=== PATIENT | female | born 2000 | race Caucasian/White ===

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

== ENCOUNTER 2020-01-28 10:40 | Emergency (ER) | payer MEDICAID, SELFPAY ==
[2020-01-28 11:02] VITALS: BP 116/58; PULSE 85; RESP 16; TEMP 36.6; O2SAT 97; BMI 26.4
--- NOTE | 2020-01-28 11:13 | ECG_ITS ---
Measurements Intervals [place] Rate: 70 P: 61 [place]: 158 QRS: 56 QRSD: 111 T: 41 QT: 384 QTc: 416 SINUS RHYTHM WITH SINUS ARRHYTHMIA INCOMPLETE RIGHT BUNDLE BRANCH BLOCK [90+ ms QRS DURATION, TERMINAL R IN V1/V2, 40+ ms S IN I/aVL/V4/V5/V6] Compared to ECG 09/21/2019 15:32:59 Sinus tachycardia no longer present T-wave abnormality no longer present Electronically Signed On 01-28-2020 19:37:35 CDT by Joanne Sanches M.D. [email or web address]
[2020-01-28 11:18] VITALS: BP 116/58; PULSE 91; RESP 16; O2SAT 98
--- NOTE | 2020-01-28 11:18 | CT_ITS ---
WS: [id number] CT head wo con* [id number] REASON FOR EXAM: SYNCOPE IV CONTRAST ADMINISTERED: None. TOTAL EXAM DLP: 617.[address] scans at [facility] use at least one of these dose optimization techniques: automat ed exposure control; mA and/or kV adjustment per patient size (includes targeted exams where dose is matched to clinical indication); or iterative reconstruction. FINDINGS: White matter interfaces were normal. No hemorrhage, mass effect, or infarction. The ventricles are normal no displacement is seen. Periventricular area internal capsule were normal. The sonya and cerebellum are normal. The calvarium show normal appearance no fractures are noted. The paranasal sinuses were all normal. The orbits show no abnormalities. The pituitary was normal. CT/CT head wo con* [id number] IMPRESSION: Normal CT of the brain
--- NOTE | 2020-01-28 11:22 | ED_ITS ---
HPI - Syncope General: Chief Complaint: Syncope Stated Complaint: SYNCOPE yesterday Time Seen by Provider: 01/28/20 10:50 Source: patient Mode of arrival: ambulatory History of Present Illness: HPI narrative: pt states she was witnessed by sister [place] out [place] yesterday evening complaint: loss of consciousness and seizure Onset (ago): unknown Prodromal symptoms: headache, vision changes, lightheaded and nausea/vomiting Associated symptoms: Reports headache(s), nausea and vertigo; Deny fever(s) Review of Systems General: Reports: 10 or more systems reviewed and unremarkable except in HPI and below Const: Denies: fever(s) Eyes: Reports: blurry vision GI: Reports: nausea; Denies: vomiting Neuro: Reports: headache(s) and vertigo PFSH ED PFSH: Social History Smoking and tobacco status: current some day smoker Female Reproductive History: Date of last menstrual period: 01/10/20 Physical Exam Const: COMMON NORMALS: no acute distress, patient oriented x3, no limitations and alert GENERAL APPEARANCE: cooperative and comfortable ORIENTATION/CONSCIOUSNESS: Yes awake, Yes oriented to person, Yes oriented to place and Yes oriented to time HENMT: COMMON NORMALS: normocephalic, atraumatic, external ears normal, EAC's normal, TM's normal bilaterally and Normal external nose present HEAD & SCALP: normal to inspection, normocephalic and atraumatic FACE & SINUS: normal facial exam, sinuses nontender and face symmetric NOSE: Normal external nose present, Normal nares present and No nasal discharge present EXTERNAL EAR: Yes external ears normal EXTERNAL AUDITORY CANAL: EAC's normal TYMPANIC MEMBRANE: TM's normal bilaterally MOUTH: Normal oral and palatal mucosa present, lip normal and tongue normal THROAT: posterior oropharynx normal, tonsils normal and uvula midline Eye: COMMON NORMALS: Equal, round and reactive pupils present, EOMs intact bilaterally and conjunctivae normal GENERAL EYE: appearance normal, both eyes and all related structures and normal light reflex EYELID: eyelids normal CONJUNCTIVA: Yes conjunctivae normal PUPIL: Yes Equal, round and reactive pupils present EOM: Yes EOM abnormal DIRECT OPHTHALMOSCOPY: Yes normal light reflex Neck/C-Spine: COMMON NORMALS: full ROM, no lymphadenopathy, supple, no meningeal signs, no JVD and Thyroid normal GENERAL: Yes normal visual inspection THYROID: Thyroid normal CERVICAL SPINE: Yes cervical ROM normal and Yes normal cervical lordosis Lymph: LYMPHATIC: no lymphadenopathy noted Chest: COMMONS NORMALS: normal inspection of the chest and normal palpation of entire chest wall Resp: COMMON NORMALS: normal respiratory effort, No retractions and clear to auscultation bilaterally AUSCULTATION: clear to auscultation bilaterally Cardio: COMMON NORMALS: no JVD, regular rate, regular rhythm, S1 normal heart sound present, S2 normal heart sound present, No gallops present (Cardio), No clicks present (Cardio), No murmurs present (Cardio), No rub (Cardio) and Peripheral pulses 2+ throughout RATE: regular rate RHYTHM: regular rhythm HEART SOUNDS: S1 normal heart sound present and S2 normal heart sound present PERIPHERAL PULSES: Peripheral pulses 2+ throughout GI: COMMON NORMALS: Normal to inspection, nondistended, normoactive bowel sounds present, Soft to palpation, non-tender and no masses PALPATION: Yes Soft to palpation : COMMON NORMALS: Yes no CVA tenderness and Yes normal external appearance BLADDER/KIDNEY EXAM: Yes no CVA tenderness Back/Pelvis: COMMON NORMALS: no CVA tenderness, thoracic and lumbar spine normal to inspection, no thoracic nor lumbar tenderness and thoraco-lumbar ROM normal Extremity: COMMON NORMALS: normal to inspection, full ROM, capillary refill normal, no joint enlargement, no clubbing, cyanosis or edema, no calf tenderness and no pedal edema GENERAL: Yes normal exam except as noted Neuro: COMMON NORMALS: patient oriented x3, moves all extremities, no focal motor deficits, no sensory deficits noted and gait normal SENSORIUM/OR IENTATION: Yes alert, Yes oriented to person, Yes oriented to place and Yes oriented to time MENINGEAL SIGNS: Yes no meningeal signs Psych: COMMON NORMALS: mental status grossly normal, Normal thought process present, cooperative, normal affect, speech normal and activity/motor behavior normal SPEECH: Yes normal speech THOUGHT PROCESS: Normal thought process present Skin: COMMON NORMALS: no rashes or lesions noted, no wounds and turgor normal GENERAL SKIN EXAM: no rashes or lesions noted and turgor normal Course ED course: Pt [place]. She denies any drug use or drinking during that time. She did not lose bowel or bladder and does not recall having any trauma to head. She was not overheated. She states she did hit her head on some rocks. Sister witnessed the event. CT head ordered and urine studies to rule out or infection. Vitals stable at time of arrival. Orthostatics ordered. Reevaluation(s): Reevaluation #1: CT head normal. Time: 12:31 Reevaluation #2: EKG normal. Orthos negative but BP mildly low upon standing. Able to tolerate PO fluids. UDS positive for THC. Negative for infection. Awaiting UPT. Time: 13:16 Reevaluation #3: Neg . Will proceed with DC with instructions to avoid alcohol and stop smoking. Increase water and electrolyte intake. Follow up with PCP. Time: 13:26 Vital Signs: Vital signs: Vital Signs Temperature 97.8 F 01/28/20 11:02 Pulse Rate 78 01/28/20 12:30 Respiratory Rate 20 H 01/28/20 12:30 Blood Pressure 94/68 01/28/20 12:30 Pulse Oximetry 98 01/28/20 12:30 MDM - Syncope Lab Data: Labs: Lab Results 01/28/20 01/28/20 01/28/20 Range/Units 11:23 11:23 11:23 HCG, Qual Negative (Negative) Urine Color Yellow (Yellow) Urine Appearance Clear (CLEAR) Urine pH 6.5 (5-7) Ur Specific Gravit y 1.015 (1.005-1.030) Urine Protein Neg (Negative) Urine Glucose (UA) Norm (Normal) Urine Ketones Negative (Negative) Urine Blood Neg (Negative) Urine Nitrate Negative (Negative) Urine Bilirubin Neg (NEGATIVE) Urine Urobilinogen 4 H (Negative) mg/dL Ur Leukocyte Melony ase Negative (Negative) Urine Opiates Scre en Negative (Negative) ng/mL Ur Barbiturates Sc reen Negative (Negative) ng/mL Ur Phencyclidine S crn Negative (Negative) ng/mL Ur Amphetamines Sc reen Negative (Negative) ng/mL U Benzodiazepines Scrn Negative (Negative) ng/mL Urine Cocaine Scre en Negative (Negative) ng/mL U Marijuana (THC) Screen Positive H (Negative) ng/mL Imaging Data^: CT Head: Radiologist's impression: [address] [place] [address] CT Scan Report Signed Patient: Harleen Olivera Unit #: [id number] : 2000 Age/Sex: 19 / F ADM Date: 01/28/20 Loc: ER Room/Bed: Attending Dr: Ordering Provider/Ordering MD: Mana Odell NP Date of Service: 01/28/20 Procedure(s): CT head wo con* [id number] Accession Number(s): [id number] Report Number: [id number] WS: [id number] CT head wo con* [id number] REASON FOR EXAM: SYNCOPE IV CONTRAST ADMINISTERED: None. TOTAL EXAM DLP: 617.[address] scans at [facility] use at least one of these dose optimization techniques: automated exposure control; mA and/or kV adjustment per patient size (includes targeted exams where dose is matched to clinical indication); or iterative reconstruction. FINDINGS: White matter interfaces were normal. No hemorrhage, mass effect, or infarction. The ventricles are normal no displacement is seen. Periventricular area internal capsule were normal. The sonya and cerebellum are normal. The calvarium show normal appearance no fractures are noted. The paranasal sinuses were all normal. The orbits show no abnormalities. The pituitary was normal. CT/CT head wo con* [id number] IMPRESSION: Normal CT of the brain Dictated By: Aldo Jacobs DO Signed By: Aldo Jacobs DO Signed Date/Time: 01/28/20 1214 DD/ 1212 Discharge Plan Discharge Patient Disposition: Home, Self-Care Clinical Impression: Vasovagal syncope, Dehydration Condition: Stable Prescriptions: No Action No Known Home Medications RF: 0 Referrals: Lavelle Zee MD [Primary Care Provider] - Discharge Diet: Advance as tolerated Discharge Activity: Resume usual activity Activity Restrictions/Additional Instructions: Increase water and electrolyte intake such as pedialyte or gatorade for the next few days. No alcohol. Stay out of direct sunlight as it can be dehydrating for the next few days as well. Please return if any worsening in symptoms. Stop use of marijuana. 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
--- NOTE | 2020-01-28 11:54 | PC.NURSE ---
Pt in CT.
[2020-01-28 12:04] VITALS: BP 103/77; BP 107/68; BP 109/73; PULSE 83; PULSE 86; PULSE 98
[2020-01-28 12:05] VITALS: BP 103/77; PULSE 75; RESP 16; O2SAT 97
[2020-01-28 12:28] LABS: Add Urine Microscopic? NO
[2020-01-28 12:30] VITALS: BP 94/68; PULSE 78; RESP 20; O2SAT 98
[2020-01-28 12:37] LABS: Bilirubin Urine Neg (NEGATIVE); Blood Urine Neg (Negative); Glucose Urine UA Norm (Normal); Ketones Urine Negative (Negative); Leukocyte Esterase Urine Negative (Negative); Nitrate Urine Negative (Negative); Protein Urine Neg (Negative); Specific Gravity, Urine 1.015 (1.005-1.030); Urine Appearance Clear (CLEAR); Urine Color Yellow (Yellow); Urobilinogen Urine 4 mg/dL (Negative); pH Urine 6.5 (5-7)
[2020-01-28 12:44] LABS: Amphetamines Screen Urine Negative (Negative); Barbiturates Screen Urine Negative (Negative); Benzodiazepines Screen Urine Negative (Negative); Cocaine Screen Urine Negative (Negative); Opiate Screen Urine Negative (Negative); PCP Screen Urine Negative (Negative); THC Screen Urine Positive (Negative)
[2020-01-28 13:18] LABS: HCG Qualitative Urine. Negative (Negative)
[2020-01-28 13:33] VITALS: BP 107/69; PULSE 84; RESP 20; O2SAT 96
== END 2020-01-28 13:34 | disposition home or self-care (01) ==
PROVIDERS: Emergency Provider Nurse Practitioner Family; PCP Family Medicine
DX: R55 Syncope and collapse (principal); E86.0 Dehydration; F17.210 Nicotine dependence, cigarettes, uncomplicated
CPT/HCPCS: 12345; 70450; 80306; 81003; 81025; 93005; 99283

== ENCOUNTER → 2020-05-26 13:27 | Outpatient (BNVA) | payer MEDICAID, SELFPAY | PROVIDERS: PCP Family Medicine; Visit Provider Nurse Practitioner Family | DX: Z20.828 Contact with and (suspected) exposure to other viral communicable diseases (principal) | CPT/HCPCS: 87635 ==

== ENCOUNTER 2023-10-24 01:58 | Inpatient (IN) | payer MEDICAID, SELFPAY ==
[2023-10-24] VITALS (38 sets, daily range): BP systolic 102–141; BP diastolic 61–89; PULSE 70–146; RESP 16; TEMP 36.1–36.8; O2SAT 97; BMI 30.2
[2023-10-24 02:32] LABS: Basophils # 0.1 10^3/uL (0.0-0.1); Basophils % 0.3 %; Eosinophils # 0.1 10^3/uL (0.0-0.8); Eosinophils % 0.7 %; Hematocrit 37.4 % (36-47); Lymphocytes # 2.3 10^3/uL (0.8-4.8); Lymphocytes % 15.6 %; Mean Corpuscular Hemoglobin 29.7 pg (27-33); Mean Corpuscular Volume 87.6 fl (85-98); Mean Platelet Volume 10.1 fL (7.4-10.4); Monocytes # 0.8 10^3/uL (0.2-0.9); Monocytes % 5.5 %; Neutrophils # 11.34 10^3/uL (1.8-7.7); Neutrophils % 77.2 %; Nucleated Red Blood Cells % 0 %; Platelet Count 314 10^3/cmm (157-399); Red Blood Count 4.27 10^6/uL (3.85-5.65); Red Cell Distribution Width 12.7 % (12.1-15.1); White Blood Count 14.71 10^3/uL (3.29-11.43)
[2023-10-24] MEDS: dextrose 5%-lactated ringers 1,000 ML 125 ML IV (03:36)
[2023-10-24] MEDS: fentaNYL 50 mcg/mL INJ 2mL IVP (03:41)
[2023-10-24 03:47] LABS: Amphetamines Screen Urine Negative (Negative); Barbiturates Screen Urine Negative (Negative); Benzodiazepines Screen Urine Negative (Negative); Cocaine Screen Urine Negative (Negative); Opiate Screen Urine Negative (Negative); PCP Screen Urine Negative (Negative); THC Screen Urine Positive (Negative)
[2023-10-24] MEDS: lidocaine 2% INJ 20 mL INJECTION (07:26)
[2023-10-24] MEDS: oxytocin 30 UNIT/500 ML BAG 600 UNIT IV (07:28)
--- NOTE | 2023-10-24 07:52 | PM.OPHPUD ---
Labor & Delivery H&P Update Date of Procedure: October 24, 2023 Date H&P Performed: 10/23/23 Changes to previous documentation: The patient arrived to the hospital 5 cm dilated and having consistent contractions Admission Diagnosis: 22-year-old 1 at 38 weeks estimated gestational age Planned procedure: Spontaneous vaginal delivery Other information: The patient is a 22-year-old 1 otherwise healthy 38-week female. She presented to the hospital in active labor. Her membranes were intact. She was noted be 5 cm dilated. Her labs were as follows. Her blood type is a positive. She was THC positive she passed her glucose screen. She is rubella immune. The remainder of her infectious disease profile was within normal limits. She is GBS negative. Related Problem List Diagnoses (1) 38 weeks gestation of : A&P Assessment and plan (1) 38 weeks gestation of : I anticipate routine labor and spontaneous vaginal delivery. Status: Acute
--- NOTE | 2023-10-24 07:56 | P.PCNOB_ITS ---
Delivery Note: Date of delivery: October 24, 2023 Pre-delivery diagnoses: 22-year-old 1 at 38 weeks estima william gestational age in active labor Post-delivery diagnoses: Status post spontaneous vaginal delivery Procedure: Spontaneous vaginal delivery Estimated blood loss (mL): 100 Pre-Delivery Course: The patient presented to the hospital having consistent contractions and dilated to 5 cm. She progressed to 8 cm. An amniotomy was performed. She then quickly progressed to complete without difficulty. She did not receive an epidural. She had no pain medication. Delivery: DELIVERY: The patient progressed to complete without difficulty. She delivered a female with a weight of 6 pounds 8 ounces with Apgars of 8, 9. The baby was delivered from the MORRO position. She was placed on the mother's abdomen. The cord was then clamped and cut 1 minute after delivery. There was no nuchal cord. There was no meconium. The placenta and 3 vessel cord were delivered intact shortly thereafter. The perineum and vaginal vault were carefully examined. The patient was noted to have superficial lacerations on the left and right anterior vaginal cedillo. She is also noted to have a posterior midline se cond-degree tear. The second-degree tear was repaired with 3-0 Vicryl in the usual fashion. The vaginal wall tears do not require repair. Both the mother and the baby were in stable condition. A&P Assessment and plan (1) Spontaneous vaginal delivery: I anticipate routine care. (2) 38 weeks gestation of : Coding Level of Care Code Acute Code for Chg Fwd Diagnoses Spontaneous vaginal delivery O80 38 weeks gestation of Z3A.38
[2023-10-24] MEDS: prenatal vitamin Capsule 1 CAP PO (10:19)
[2023-10-24] MEDS: docusate sodium 100 mg Capsule PO ×2 (10:19→20:54)
[2023-10-24] MEDS: ibuprofen 800 mg tablet PO ×3 (10:19→20:54)
[2023-10-24 19:41] LABS: Hematocrit 30.5 % (36-47); Mean Corpuscular HGB Conc 34.4 g/dL (30-55); Mean Corpuscular Hemoglobin 30.5 pg (27-33); Mean Corpuscular Volume 88.7 fl (85-98); Mean Platelet Volume 9.8 fL (7.4-10.4); Platelet Count 243 10^3/cmm (157-399); Red Blood Count 3.44 10^6/uL (3.85-5.65); Red Cell Distribution Width 12.9 % (12.1-15.1); White Blood Count 12.97 10^3/uL (3.29-11.43)
[2023-10-24] MEDS: benzocaine-menthol 78 gm Canister 1 SPRAY TOPICAL (20:54)
[2023-10-24] MEDS: lanolin oint 7 gm 1 APPLIC TOPICAL (20:54)
[2023-10-25 04:00] VITALS: BP 94/56; PULSE 90; RESP 16; TEMP 36.6; O2SAT 96
--- NOTE | 2023-10-25 08:01 | PM.OBGYDC ---
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 Her labor was unremarkable. She progressed to 8 cm without difficulty. An amniotomy was performed. She then progressed to complete and had an unremarkable delivery of a healthy male . Her course was also unremarkable. Her bleeding was within normal limits. Her pain was well-controlled. She breast-fed well. Information Peripartum Data: Infant Delivery Method: Vaginal Physical Exam Narrative: The patient is alert. She appears comfortable. Her heart has a regular rate and rhythm with no murmurs appreciated. Lungs are clear to auscultation bilaterally. Her fundus is firm and below the umbilicus. Discharge Data Studies Completed and Pending Laboratory Results WBC 12.97 10^3/uL (3.29-11.43) H 10/24/23 19:31 RBC 3.44 10^6/uL (3.85-5.65) L 10/24/23 19:31 Hgb 10.50 g/dL (11.27-16.99) L 10/24/23 19:31 Hct 30.5 % (36-47) L 10/24/23 19:31 MCV 88.7 fl (85-98) 10/24/23 19:31 MCH 30.5 pg (27-33) 10/24/23 19:31 MCHC 34.4 g/dL (30-55) 10/24/23 19:31 RDW 12.9 % (12.1-15.1) 10/24/23 19:31 Plt Count 243 10^3/cmm (157-399) 10/24/23 19:31 MPV 9.8 fL (7.4-10.4) 10/24/23 19:31 Neut % (Auto) 77.2 % 10/24/23 02:05 Lymph % (Auto) 15.6 % 10/24/23 02:05 [place] % (Auto) 5.5 % 10/24/23 02:05 Eos % (Auto) 0.7 % 10/24/23 02:05 Baso % (Auto) 0.3 % 10/24/23 02:05 Neut # (Auto) 11.34 10^3/uL (1.8-7.7) H 10/24/23 02:05 Lymph # (Auto) 2.3 10^3/uL (0.8-4.8) 10/24/23 02:05 [place] # (Auto) 0.8 10^3/uL (0.2-0.9) 10/24/23 02:05 Eos # (Auto) 0.1 10^3/uL (0.0-0.8) 10/24/23 02:05 Baso # (Auto) 0.1 10^3/uL (0.0-0.1) 10/24/23 02:05 Nucleated RBC % (auto) 0 % 10/24/23 02:05 Nucleated RBCs # 0.0 /100WBC 10/24/23 02:05 Urine Opiates Screen Negative ng/mL (Negative) 10/24/23 03:15 Ur Barbiturates Screen Negative ng/mL (Negative) 10/24/23 03:15 Ur Phencyclidine Scrn Negative ng/mL (Negative) 10/24/23 03:15 Ur Amphetamines Screen Negative ng/mL (Negative) 10/24/23 03:15 U Benzodiazepines Scrn Negative ng/mL (Negative) 10/24/23 03:15 Urine Cocaine Screen Negative ng/mL (Negative) 10/24/23 03:15 U Marijuana (THC) Screen Positive ng/mL (Negative) H 10/24/23 03:15 Blood Type A Positive 10/24/23 02:05 Rho(D) Type Rh positive 10/24/23 02:05 Antibody Screen Negative 10/24/23 02:05 Vitals Last Vital Signs Temp 97.9 F 10/25/23 04:00 Pulse 90 10/25/23 04:00 Resp 16 10/25/23 04:00 BP 94/56 10/25/23 04:00 Pulse Ox 96 10/25/23 04:00 O2 Del Method Room Air 10/25/23 04:00 Results Labs OB ([facility]): Obstetrics US 09/12/23 Blood Type A Positive 10/24/23 Antibody Screen Negative 10/24/23 Hct 30.5 % (36-47) L 10/24/23 Hgb 10.50 g/dL (11.27-16.99) L 10/24/23 Rho(D) Type Rh positive 10/24/23 Plt Count 243 10^3/cmm (157-399) 10/24/23 HCG, Qual Negative (Negative) 01/28/20 Urine Opiates Screen Negative ng/mL (Negative) 10/24/23 Ur Barbiturates Screen Negative ng/mL (Negative) 10/24/23 Ur Phencyclidine Scrn Negative ng/mL (Negative) 10/24/23 Ur Amphetamines Screen Negative ng/mL (Negative) 10/24/23 U Benzodiazepines Scrn Negative ng/mL (Negative) 10/24/23 Urine Cocaine Screen Negative ng/mL (Negative) 10/24/23 U Marijuana (THC) Screen Positive ng/mL (Negative) H 10/24/23 Discharge Plan Discharge Patient Disposition: Home Condition: Stable Prescriptions: New ibuprofen 800 mg Tablet 800 mg PO TID Qty: 45 0RF -U 106.5-1 mg Capsule 1 cap PO DAILY Qty: 90 2RF Discharge Orders: Discharge Order (Routine); Ordered 10/25/23 Ordered By: Anil Ruth Referrals: Anil Ruth MD [Physician] - 6 Weeks Discharge Diet: Usual diet Discharge Activity: Limit activity as instructed Patient Instructions: Opioid Safety Discharge 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
[2023-10-25 09:30] VITALS: BP 104/73; PULSE 134; RESP 16; TEMP 36.8
[2023-10-25 10:49] VITALS: BP 104/73; PULSE 134; RESP 16; TEMP 36.8
== END 2023-10-25 10:45 | disposition home or self-care (01) | DRG 807 ==
LOC: OPOB 01:59 → OBGYN 01:59
PROVIDERS: Admitting Provider Family Medicine; PCP Family Medicine; Visit Provider Family Medicine
DX: O99.324 Drug use complicating childbirth (principal); Z37.0 Single live birth; F12.90 Cannabis use, unspecified, uncomplicated; Z3A.38 38 weeks gestation of pregnancy; O70.1 Second degree perineal laceration during delivery
CPT/HCPCS: 36415; 59025; 59409; 80306; 85025; 85027; 86850; 86900; 96374; 99211; J2590; J3010; J7121